=== PATIENT | female | born 1985 | race Two or more races ===

== ENCOUNTER 2019-09-25 12:43 | Emergency (ER) | payer BC ==
--- NOTE | 2019-09-25 13:36 | EDM.PDOC ---
ED HPI GENERAL MEDICAL PROBLEM - General Chief Complaint: Skin Complaint Stated Complaint: BUMP ON ABDOMEN Time Seen by Provider: 09/25/19 13:22 - History of Present Illness INITIAL COMMENTS - FREE TEXT/NARRATIVE: History of present illness: 34-year-old female presenting with umbilical area pain the last 2 days, after she reached/strained to get something and was leaning on the corner of the table top. No prior similar symptoms. Pain not anywhere else other than point tenderness in the umbilicus. No fevers or chills, no nausea or vomiting. Review of systems: As per history of present illness and below otherwise all systems reviewed and negative. Past medical history: As per history of present illness and as reviewed below otherwise noncontributory. No past medical history Surgical history: As per history of present illness and as reviewed below otherwise noncontributory. No surgical, including specifically no intra-abdominal surgery history. Social history: No reported history of drug or alcohol abuse. No tobacco. Family history: As per history of present illness and as reviewed below otherwise noncontributory. Physical exam: HEENT: Atraumatic, normocephalic, mucous membranes moist, throat clear, Neck: supple, nontender, trachea midline. Lungs: No respiratory distress. Heart: RRR Abdomen: Soft, nondistended, mildly point tender in the umbilicus, there is a small area of enlargement, likely small defect in the abdominal wall at the site of tenderness. Possible very small hernia. No incarceration or strangulation. Not present when laying down, only present when straining or standing. Obese abdomen. There is no erythema nor any fluctuance at the site of tenderness. Does not appear consistent with any infection. Pelvis: Stable nontender. Extremities: Atraumatic. Neurovascularly unremarkable. Neuro: Awake, alert, oriented. Neuro Exam nonfocal. Diagnostics: [] Therapeutics: [] MDM: Very small area of tenderness in the umbilicus. Suspect early/small umbilical hernia that is not strangulated or incarcerated. Possible scar tissue though unlikely given no prior history of intra-abdominal surgeries. Discussed with patient avoidance of straining, ibuprofen and ice versus heat therapy. Will refer to surgery for possible follow-up if needed. Discussed plan for abdominal support belt/abdominal binder for pain relief, increased abdominal wall strengthening, and weight loss. Impression: Umbilical hernia Plan: [] Definitive disposition and diagnosis as appropriate pending reevaluation and review of above. abdomen Pain Score (Numeric/FACES): 1 - Related Data Allergies Allergy/AdvReac Type Severity Reaction Status Date / Time No Known Allergies Allergy Verified 09/25/19 13:15 Home Meds: Home Meds . [No Known Home Meds] 09/25/19 [History] Past Medical History [employer] History: Reports: Spontaneous Social & Family History - Tobacco Use Smoking Status *Q: Never Smoker - Caffeine Use Caffeine Use: Reports: None - Recreational Drug Use Recreational Drug Use: No ED ROS GENERAL - Review of Systems Review Of Systems: See Below (See dictation) ED EXAM, SKIN/RASH Exam: See Below (see dictation) Course - Vital Signs Last Recorded V/S: Last Vital Signs Temp 97 F 09/25/19 13:13 Pulse 87 09/25/19 13:13 Resp 16 09/25/19 13:13 BP 134/74 09/25/19 13:13 Pulse Ox 97 09/25/19 13:13 Departure - Departure Time of Disposition: 13:35 Disposition: Home, Self-Care 01 Condition: Good Clinical Impression: Umbilical hernia - Discharge Information Instructions: Hernia, Adult, [id number], Umbilical Hernia, Adult Referrals: PCP,None [Primary Care Provider] - Additional Instructions: The following information is given to patients seen in the emergency department who are being discharged to home. This information is to outline your options for follow-up care. We provide all patients seen in our emergency department with a follow-up referral. The need for follow-up, as well as the timing and circumstances, are variable depending upon the specifics of your emergency department visit. If you don't have a primary care physician on staff, we will provide you with a referral. We always advise you to contact your personal physician following an emergency department visit to inform them of the circumstance of the visit and for follow-up with them and/or the need for any referrals to a consulting specialist. The emergency department will also refer you to a specialist when appropriate. This referral assures that you have the opportunity for follow-up care with a specialist. All of these measure are taken in an effort to provide you with optimal care, which includes your follow-up. Under all circumstances we always encourage you to contact your private physician who remains a resource for coordinating your care. When calling for follow-up care, please make the office aware that this follow-up is from your recent emergency room visit. If for any reason you are refused follow-up, please contact the [facility] Emergency Department at and asked to speak to the emergency department charge nurse. [facility] - Primary Care [address] [place] [id number] [facility] [address] [place] [id number] [facility] - General Surgery Professional Building [address] [place] [address], [address] [place] [address] Sepsis Event Note (ED) - Evaluation Sepsis Screening Result: No Definite Risk - Focused Exam Vital Signs: Vital Signs Temp Pulse Resp BP Pulse Ox 09/25/19 13:13 97 F 87 16 134/74 97
== END 2019-09-25 13:47 | disposition home or self-care (01) ==
LOC: MW.ED 12:43
DX: K42.9 Umbilical hernia without obstruction or gangrene (principal); E66.9 Obesity, unspecified; Z68.41 Body mass index [BMI] 40.0-44.9, adult
CPT/HCPCS: 99283